=== PATIENT | male | born 1990 | race Hispanic/Latino ===

== ENCOUNTER 2023-09-17 11:44 | Emergency (ER) | payer OTHER, SELFPAY ==
[2023-09-17] VITALS (7 sets, daily range): BP systolic 99–111; BP diastolic 51–84; PULSE 42–58; RESP 12–19; TEMP 35.6–36.9; O2SAT 96–100
--- NOTE | 2023-09-17 12:11 | EKG12_ITS ---
Test Reason : DIZZY Blood Pressure : / mmHG Vent. Rate : 044 BPM Atrial Rate : 044 BPM P-R Int : 238 ms QRS Dur : 090 ms QT Int : 414 ms P-R-T Axes : 035 059 025 degrees QTc Int : 353 ms Marked sinus bradycardia with 1st degree A-V block Abnormal ECG No previous ECGs available Confirmed by Justin Lozano ([id number]), video tape editor ANTONIETA LOVELL ([id number]) on 09/24/2023 1:31:41 PM Referred By: Confirmed By:Justin Lozano
--- NOTE | 2023-09-17 12:11 | CT_ITS ---
INDICATION: abd pain, prior hernia repair EXAMINATION: CT ABDOMEN AND PELVIS WITHOUT CONTRAST - CT Abdomen And Pelvis W/O Contrast Injection TECHNIQUE: Helically acquired images were obtained of the abdomen and pelvis without oral or IV contrast. A radiation dose optimization technique was used for this scan. IV Contrast dosage and agent: None. Oral contrast: None. COMPARISON: None. FINDINGS: LOWER CHEST: Lung bases are clear. No cardiomegaly or pericardial effusion. LIVER: Homogeneous. No focal mass. GALLBLADDER AND BILIARY TREE: No calcified gallstones. No gallbladder distension or wall edema. No intra- or extrahepatic biliary ductal dilation. PANCREAS: No focal cystic or solid mass. SPLEEN: Normal size without focal cystic or solid mass. ADRENAL GLANDS: No nodules. KIDNEYS AND URETERS: Normal renal size and position. No hydronephrosis. PERITONEUM: No ascites or free air. No other fluid collection. BOWEL: No evidence of acute appendicitis. No stomach or bowel distension. No focal inflammatory change. LYMPH NODES: No enlarged mesenteric or retroperitoneal lymph nodes. VESSELS: Aorta is non-dilated. URINARY BLADDER: Unremarkable. REPRODUCTIVE ORGANS: No pelvic masses. ABDOMINAL WALL: Tiny fat-containing umbilical hernia without inflammation. No evidence of inguinal hernia. BONES: No lytic or blastic abnormality. CT/Abdomen/Pelvis without Cont IMPRESSION: No specific finding to explain patient''s pain. Tiny fat-containing umbilical hernia without inflammation Electronically Signed: Audi Gurrola MD at 20:18 EDT ,
--- NOTE | 2023-09-17 12:12 | EX.ED.DYSGE1 ---
HPI <Dr. 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 Patient presents with episodes of dizziness and nosebleeds that been ongoing for the past 2 weeks. He also complains of some left sided abdominal pain with prior surgery. Patient states for the past 2 weeks has been having intermittent nosebleeds that usually happen in the morning or midday. He states he will often bend over and hold pressure and when he stands up he feels dizzy. He has not had any syncopal episodes. He denies chest pain or palpitations. Patient reports having prior abdominal hernia surgery 5 or 6 years ago at [facility]. He states that there were 2 different hernias but they were only able to repair 1. He reports increasing pain at the surgery site and is concerned about the unrepaired hernia getting worse. He denies any significant past medical history. He states he was told at one time that he needed to use an inhaler, but denies an acutal diagnosis of asthma. PFSH <Dr. Bree Lee MD - Last Filed: 09/18/23 09:55> [facility] Medical History no medical history no medical history Allergy/AdvReac Type Severity Reaction Status Date / Time No Known Allergies Allergy Verified 09/17/23 11:52 Social History Smoking Status: Unknown if ever smoked ROS <Dr. Bree Lee MD - Last Filed: 09/18/23 09:55> ROS ED Constitutional Constitutional ED: Reports other Details: One single night of fever 2 weeks ago. ; Denies chills Eyes Eyes: Denies blurry vision or change in vision ENT ENT ED: Reports rhinorrhea and other Details: nosebleeds Cardiovascular Cardiovascular: Denies chest pain or palpitations Respiratory/Chest Respiratory/Chest: Denies cough or dyspnea Gastrointestinal Gastrointestinal: Reports abdominal pain; Denies diarrhea or vomiting Genitourinary Genitourinary ED: Denies dysuria Musculoskeletal Musculoskeletal: Denies back pain or neck pain Integumentary Denies Abrasions Neurologic Neurologic: Denies headache(s) EXAM <Dr. Bree Lee MD - Last Filed: 09/18/23 09:55> Physical Exam Const Vital Signs: 09/17/23 11:49 09/17/23 13:44 09/17/23 15:00 Temperature 96.1 F L Temperature Source Temporal Pulse Rate 52 L 50 L 58 L Pulse Rate [Lying] Pulse Rate [Sitting (for 1 minute prior to obtaining)] Pulse Rate [Standing (for 1 minute prior to obtaining)] Respiratory Rate 17 16 19 H Blood Pressure 109/69 111/73 108/69 Blood Pressure [Lying] Blood Pressure [Sitting (for 1 minute prior to obtaining)] Blood Pressure [Standing (for 1 minute prior to obtaining)] Blood Pressure Mean 82 85 82 Blood Pressure Mean [Lying] Blood Pressure Mean [Sitting (for 1 minute prior to obtaining)] Blood Pressure Mean [Standing (for 1 minute prior to obtaining)] Pulse Ox 100 96 98 Oxygen Delivery Method Room Air Room Air Room Air 09/17/23 17:00 09/17/23 19:00 09/17/23 20:01 Temperature Temperature Source Pulse Rate 51 L 48 L Pulse Rate [Lying] 42 L Pulse Rate [Sitting (for 1 minute prior to obtaining)] 46 L Pulse Rate [Standing (for 1 minute prior to obtaining)] 52 L Respiratory Rate 17 15 Blood Pressure 104/62 99/84 H Blood Pressure [Lying] 107/70 Blood Pressure [Sitting (for 1 minute prior to obtaining)] 110/51 L Blood Pressure [Standing (for 1 minute prior to obtaining)] 108/74 Blood Pressure Mean 76 89 Blood Pressure Mean [Lying] 82 Blood Pressure Mean [Sitting (for 1 minute prior to obtaining)] 70 Blood Pressure Mean [Standing (for 1 minute prior to obtaining)] 85 Pulse Ox 99 96 Oxygen Delivery Method Room Air Room Air 09/17/23 20:56 Temperature 98.5 F Temperature Source Pulse Rate 50 L Pulse Rate [Lying] Pulse Rate [Sitting (for 1 minute prior to obtaining)] Pulse Rate [Standing (for 1 minute prior to obtaining)] Respiratory Rate 12 Blood Pressure 104/51 L Blood Pressure [Lying] Blood Pressure [Sitting (for 1 minute prior to obtaining)] Blood Pressure [Standing (for 1 minute prior to obtaining)] Blood Pressure Mean 68 Blood Pressure Mean [Lying] Blood Pressure Mean [Sitting (for 1 minute prior to obtaining)] Blood Pressure Mean [Standing (for 1 minute prior to obtaining)] Pulse Ox 99 Oxygen Delivery Method Positive well nourished and well developed General Appearance ED: well developed HEENT Reports moist mucous membranes HEENT Narrative: Nares clear bilaterally Eyes EOMs intact bilaterally Chest Wall inspection of chest normal and palpation of chest normal Resp normal respiratory effort and clear to auscultation bilaterally Cardio regular rhythm Rate: bradycardia GI GI Narrative: Abdomen soft with mild tenderness to palpation in the left lower quadrant. No palpable masses. Hypoactive, but present bowel sounds. Extremity normal to inspection Neuro oriented x3 and no sensory deficits noted Motor Exam: strength 5/5 throughout Psych mental status grossly normal Skin no rashes or lesions noted <Dr. David Carvajal, DO - Last Filed: 09/17/23 20:44> Physical Exam Const Vital Signs: 09/17/23 11:49 09/17/23 13:44 09/17/23 15:00 Temperature 96.1 F L Temperature Source Temporal Pulse Rate 52 L 50 L 58 L Pulse Rate [Lying] Pulse Rate [Sitting (for 1 minute prior to obtaining)] Pulse Rate [Standing (for 1 minute prior to obtaining)] Respiratory Rate 17 16 19 H Blood Pressure 109/69 111/73 108/69 Blood Pressure [Lying] Blood Pressure [Sitting (for 1 minute prior to obtaining)] Blood Pressure [Standing (for 1 minute prior to obtaining)] Blood Pressure Mean 82 85 82 Blood Pressure Mean [Lying] Blood Pressure Mean [Sitting (for 1 minute prior to obtaining)] Blood Pressure Mean [Standing (for 1 minute prior to obtaining)] Pulse Ox 100 96 98 Oxygen Delivery Method Room Air Room Air Room Air 09/17/23 17:00 09/17/23 19:00 09/17/23 20:01 Temperature Temperature Source Pulse Rate 51 L 48 L Pulse Rate [Lying] 42 L Pulse Rate [Sitting (for 1 minute prior to obtaining)] 46 L Pulse Rate [Standing (for 1 minute prior to obtaining)] 52 L Respiratory Rate 17 15 Blood Pressure 104/62 99/84 H Blood Pressure [Lying] 107/70 Blood Pressure [Sitting (for 1 minute prior to obtaining)] 110/51 L Blood Pressure [Standing (for 1 minute prior to obtaining)] 108/74 Blood Pressure Mean 76 89 Blood Pressure Mean [Lying] 82 Blood Pressure Mean [Sitting (for 1 minute prior to obtaining)] 70 Blood Pressure Mean [Standing (for 1 minute prior to obtaining)] 85 Pulse Ox 99 96 Oxygen Delivery Method Room Air Room Air 09/17/23 20:56 Temperature 98.5 F Temperature Source Pulse Rate 50 L Pulse Rate [Lying] Pulse Rate [Sitting (for 1 minute prior to obtaining)] Pulse Rate [Standing (for 1 minute prior to obtaining)] Respiratory Rate 12 Blood Pressure 104/51 L Blood Pressure [Lying] Blood Pressure [Sitting (for 1 minute prior to obtaining)] Blood Pressure [Standing (for 1 minute prior to obtaining)] Blood Pressure Mean 68 Blood Pressure Mean [Lying] Blood Pressure Mean [Sitting (for 1 minute prior to obtaining)] Blood Pressure Mean [Standing (for 1 minute prior to obtaining)] Pulse Ox 99 Oxygen Delivery Method MDM <Dr. Bree Lee MD - Last Filed: 09/18/23 09:55> [facility] Narrative Medical decision making narrative: Patient placed on pharmacy tech. EKG obtained to evaluate for arrhythmia. Labwork obtained to evaluate for anemia or electrolyte derangement. CT flank obtained to evaluate for evidence of hernia or obstruction. Patient treated with IV fluids. Orthostatic vital signs ordered. History & Record Review Discussion w/independent historian: Patient Lab Data Attestation: I reviewed the patient's lab results. Labs: Laboratory Results - last 24 hr 09/17/23 12:29 WBC 5.3 RBC 4.33 L Hgb 13.4 Hct 39.3 L MCV 90.8 MCH 30.9 MCHC 34.1 RDW Std Deviation 43.7 RDW Coeff of Ashlie 13.0 Plt Count 168 MPV 11.5 Immature Gran % (Auto) 0.400 Neut % (Auto) 53.4 Lymph % (Auto) 34.2 Ponce % (Auto) 9.0 Eos % (Auto) 2.6 Baso % (Auto) 0.4 Absolute Neuts (auto) 2.8 Absolute Lymphs (auto) 1.82 Nucleated RBC % 0 Sodium 138 Potassium 3.7 Chloride 105 Carbon Dioxide 26.0 Anion Gap 7 BUN 15 Creatinine 0.87 Est GFR (MDRD) Af Amer 130 Est GFR (MDRD) Non-Af 107 BUN/Creatinine Ratio 17.2 Glucose 94 Calcium 8.8 Radiography Diagnostic Testing: Clinical Impression(s) from Imaging Studies Abdomen/Pelvis CT 09/17/23 12:11 IMPRESSION: No specific finding to explain patient''s pain. Tiny fat-containing umbilical hernia without inflammation Electronically Signed: Audi Gurrola MD at 20:18 EDT , EKG Initial EKG: Attestation: I personally reviewed and interpreted this EKG as follows: Interpretation: Sinus Bradycardia (Sinus bradycardia at 44. No acute ischemia. No prior studies available for comparison.) Treatment and Re-Evaluation :: CBC reveals normal white count at 5.3 with normal differential. Hemoglobin is normal at 13.4. Chemistry studies are normal. CT scan of the abdomen and pelvis has been obtained and results pending at this time. There has been a significant delay in results secondary to computer/internet issues not allowing transfer of images. <Dr. David Carvajal, DO - Last Filed: 09/17/23 20:44> [facility] Narrative Medical decision making narrative: Patient placed on pharmacy tech. EKG obtained to evaluate for arrhythmia. Labwork obtained to evaluate for anemia or electrolyte derangement. CT flank obtained to evaluate for evidence of hernia or obstruction. Patient treated with IV fluids. Orthostatic vital signs ordered. Patient signed out to me for monitoring until lab work and imaging can be obtained. There is a delay in care due to radiology downtime and there is been several CT reads are taken several hours to be interpreted. CBC showed a normal white blood cell count of 5.3. Hemoglobin 13.4. Platelets are normal at 168. Renal function and electrolytes within normal limits. CT of the abdomen pelvis is still pending at 7:55 PM. Patient states that he wants to go home. I used the barrel roller operator iPad to discussed the case with the patient and his lab work and imaging. I counseled him that the CT is still not read and I am unable to interpret the CT however his lab work is normal. He wants to sign out AMA so I did have him sign paperwork. Chief Nurse phone was used to sign him out AGAINST MEDICAL ADVICE and he acknowledges risk of severe injury, debility, . At this point the patient states that he will stay and wait for his CAT scan. 8:40 PM patient counseled the CT scan is negative. Currently he is pain-free. Patient will be discharged home. Counseled on return precautions. Lab Data Labs: Laboratory Results - last 24 hr 09/17/23 12:29 WBC 5.3 RBC 4.33 L Hgb 13.4 Hct 39.3 L MCV 90.8 MCH 30.9 MCHC 34.1 RDW Std Deviation 43.7 RDW Coeff of Ashlie 13.0 Plt Count 168 MPV 11.5 Immature Gran % (Auto) 0.400 Neut % (Auto) 53.4 Lymph % (Auto) 34.2 Ponce % (Auto) 9.0 Eos % (Auto) 2.6 Baso % (Auto) 0.4 Absolute Neuts (auto) 2.8 Absolute Lymphs (auto) 1.82 Nucleated RBC % 0 Sodium 138 Potassium 3.7 Chloride 105 Carbon Dioxide 26.0 Anion Gap 7 BUN 15 Creatinine 0.87 Est GFR (MDRD) Af Amer 130 Est GFR (MDRD) Non-Af 107 BUN/Creatinine Ratio 17.2 Glucose 94 Calcium 8.8 Radiography Diagnostic Testing: Clinical Impression(s) from Imaging Studies Abdomen/Pelvis CT 09/17/23 12:11 IMPRESSION: No specific finding to explain patient''s pain. Tiny fat-containing umbilical hernia without inflammation Electronically Signed: Audi Gurrola MD at 20:18 EDT , Discharge Plan Triage Chief Complaint: Abd Pain Other Complaint: Dizziness ED Provider: Bree Lee Dx/Rx/DC Orders Clinical Impression: Abdominal pain Instructions: ED Abdominal Pain Unkn Cause Male... Primary Care Provider: Care Physician,No Primary Referrals: Xochitl Coppola [facility] [Provider Group] - 3-5 Days NOT,DEFINED [Non-Staff] - Print Language: Estonian Disposition Disposition: Home, Self Care Discharge Date/Time: 09/17/23 20:57
[2023-09-17] MEDS: 0.9% Normal Saline (1000mL) 1,000 ML 1000 ML IV (12:23)
[2023-09-17 12:35] LABS: Absolute Lymphocyte Count 1.82 X10^3/uL (0.83-4.51); Absolute Neutrophil Count 2.8 X10^3/uL (2.0-7.7); Basophil# 0.02 X10^3/uL; Basophil% 0.4 % (0-1); Eosinophil# 0.14 X10^3/uL; Eosinophils% 2.6 % (0-5); Hematocrit 39.3 % (40-54); Hemoglobin 13.4 g/dL (13.0-16.5); Lymphocyte # 1.82 X10^3/ul (0.83-4.51); Lymphocyte % 34.2 % (19-41); Mean Corp Hgb Conc 34.1 g/dL (32-36); Mean Corpuscular Hgb 30.9 pg (27.0-32.0); Mean Corpuscular Volume 90.8 fL (80-94); Mean Platelet Vol. 11.5 fl (6.2-12.0); Monocyte# 0.48 X10^3/uL; NRBC Flagged by Analyzer 0 % (0-5); Neutrophil # 2.84 X10^3/uL (2.7-7.7); Neutrophil % 53.4 % (47-70); Platelet Count 168 K/mm3 (150-450); RBC Distribution Width SD 43.7 fl (35.1-43.9); Red Blood Count 4.33 M/mm3 (4.6-6.2); White Blood Count 5.3 K/mm3 (4.4-11.0)
[2023-09-17 12:49] LABS: Anion Gap 7 (5-15); BUN 15 mg/dL (7-18); BUN/Creat Ratio 17.2 RATIO (10-20); Calcium,Total 8.8 mg/dL (8.5-10.1); Chloride 105 mmol/L (98-107); Creatinine, Serum 0.87 mg/dL (0.70-1.30); EST Glomerular Filtration Rate 107 mL/min (>60); Est Glom Filt Rate - Afr Amer 130 mL/min (>60); Glucose 94 mg/dL (74-106); Potassium 3.7 mmol/L (3.5-5.1); Sodium Level 138 mmol/L (136-145)
--- NOTE | 2023-09-17 12:58 | NURSING ---
no old ekgs
== END 2023-09-17 20:57 | disposition home or self-care (01) ==
PROVIDERS: Emergency Provider Emergency Medicine; Visit Provider Emergency Medicine
DX: R10.9 Unspecified abdominal pain (principal)
CPT/HCPCS: 74176; 80048; 85025; 93005; 96360; 99285; J7030; A4216